=== PATIENT | male | born 1925 | race Two or more races ===

== ENCOUNTER 2017-04-08 10:59 | Outpatient (CLI) | payer OTHER ==
[~2017-04-08 10:59] MED LIST: DICLOFENAC POTA50 MG PO
== END 2017-04-08 13:44 | disposition home or self-care (01) ==
LOC: TOM 10:59
DX: R13.19 Other dysphagia (principal); G45.8 Other transient cerebral ischemic attacks and related syndromes
CPT/HCPCS: 70450; 70491; Q9965

== ENCOUNTER 2017-04-08 11:48 | Outpatient (CLI) | payer OTHER | END 2017-04-08 13:45 | disposition home or self-care (01) | LOC: RAD 11:48 → TOM 11:48 → RAD 13:45 | DX: M54.5 Low back pain (principal) ==

== ENCOUNTER 2017-05-06 12:27 | Outpatient (CLI) | payer OTHER ==
[~2017-05-06] VITALS: Ht 175.3 cm; Wt 60.8 kg
== END 2017-05-06 12:40 | disposition home or self-care (01) ==
LOC: OFIC 805 12:27
DX: R49.0 Dysphonia (principal); R49.1 Aphonia